=== PATIENT | female | born 1995 | race Caucasian/White ===

== ENCOUNTER 2018-12-26 11:14 | Emergency (ER) | payer BC ==
[~2018-12-26] VITALS: Ht 170.2 cm; Wt 61.9 kg
[2018-12-26 11:17] VITALS: BP 108/66
--- NOTE | 2018-12-26 11:20 | NUR ---
BIB FAMILY C/O SEIZURE X LAST NIGHT. FAMILY REPORTED PT'S FRIEND TOLD HER THAT PATIENT HAD SEIZURE IN A CHAIR AT WORK A FEW MINS LAST NIGHT. PATIENT STATED SHE CAN'T RECALL WHAT HAPPENED LAST NIGHT. DENIES N/V/D; SKIN IS PINK/WARM/DRY; AAOX4 WITH EVEN AND STEADY GAIT; PT DENIES ANY FEVER, CP, SOB, OR COUGH AT THIS TIME; PATIENT STATES PAIN OF 0/10 AT THIS TIME; VSS; PATIENT POSITIONED FOR COMFORT; HOB ELEVATED; BEDRAILS UP X2 AND PADS APPLIED FOR PREVENTION OF FALL; BED DOWN. ER MD MADE AWARE OF PT STATUS. FAMILY MEMBER IS AT BEDSIDE.
--- NOTE | 2018-12-26 11:30 | NUR ---
PATIENT AMBULATED TO BED 6
[2018-12-26] MEDS ORDERED: NACL 0.9% 1,000 ML IV ONE (12:10)
--- NOTE | 2018-12-26 12:24 | NUR ---
CXR AT BEDSIDE
--- NOTE | 2018-12-26 12:29 | NUR ---
LAB AT BEDSIDE.
[2018-12-26 12:49] LABS: BASOPHILS % (AUTO) 0.2 % (0.0-2.0); EOSINOPHILS % (AUTO) 0.1 % (0.0-4.0); HEMATOCRIT 39.4 % (36-48); HEMOGLOBIN 13.2 g/dL (12.0-16.0); LYMPHOCYTES % (AUTO) 11.9 % (20.5-51.1); MEAN CORPUSCULAR HEMOGLOBIN 33 pg (27-31); MEAN CORPUSCULAR HGB CONC 34 g/dL (33-37); MEAN CORPUSCULAR VOLUME 99.6 fL (80-94); MONOCYTES # (AUTO) 0.3 K/uL (0.8-1.0); MONOCYTES % (AUTO) 3.7 % (1.7-9.3); NEUTROPHILS % (AUTO) 84.1 % (42.2-75.2); PLATELET COUNT (AUTO) 239 K/uL (140-450); RED BLOOD CELL COUNT(AUTO) 3.96 MIL/uL (4.20-5.40); WHITE BLOOD COUNT (AUTO) 8.3 K/uL (4.8-10.8)
[2018-12-26 12:58] LABS: ANION GAP 11.7 (8-16); CARBON DIOXIDE 26.3 mmol/L (21-32); CREATININE 0.7 mg/dL (0.6-1.3)
--- NOTE | 2018-12-26 13:01 | NUR ---
Patient returned from CT scan. RN re-evaluating patient at bedside.
[2018-12-26 13:13] LABS: ALBUMIN 4.4 g/dL (3.4-5.0); TOTAL BILIRUBIN 0.4 mg/dL (0.0-1.0)
--- NOTE | 2018-12-26 13:30 | NUR ---
Patient discharged with v/s stable. Written and verbal after care instructions given and explained. Patient alert, oriented and verbalized understanding of instructions. Ambulatory with steady gait. All questions addressed prior to discharge. ID band removed. Patient advised to follow up with neurologist. Rx of Vistaril given. Patient educated on indication of medication including possible reaction and side effects. Opportunity to ask questions provided and answered.
[2018-12-26 13:31] VITALS: BP 111/70
== END 2018-12-26 13:30 | disposition home or self-care (01) ==
LOC: MED 11:14
DX: G40.909 Epilepsy, unspecified, not intractable, without status epilepticus (principal); F32.9 Major depressive disorder, single episode, unspecified; R79.89 Other specified abnormal findings of blood chemistry
CPT/HCPCS: 36415; 70450; 71045; 80053; 80173; 81002; 81025; 82550; 83735; 84484; 85025; 85651; 86140; 99284; G0482; J7030